=== PATIENT | female | born 1980 | race Caucasian/White ===

== ENCOUNTER 2016-12-01 08:17 | Emergency (ER) | payer OTHER ==
--- NOTE | ~2016-12-01 | CR63 ---
[facility] A Service of [facility] & [facility] / [facility] RADIOLOGY TEXT RESULTS PATIENT: BO KHAN LOCATION: [facility] : 84 UNIT #: [id number] AGE: [address]: Reer Houston SEX: F ORDER DR: [id number] [facility] [address] [place], [place] [address] [id number] E MR#: [id number] Acc #: [id number] NAME: BO KHAN : 1980 SEX: F STUDY DATE/TIME: 12/01/2016 8:23 UNIT: [facility] ROOM: STUDY DESCRIPTION: CR Chest 2 View Attending Physician: Rere Houston P.A.-C. Ordering Physician: Rere Houston P.A.-C. Primary Care Physician: No Primary Care Physician MEDICAL IMAGING REPORT This report is preliminary unless electronic signature is present EXAM Chest, 12/01/2016, 0823 hours, [facility]. HISTORY 36-year-old woman, productive cough, fever, congestion, short of air. 1-year smoking history. Current symptoms 8-9 days. COMPARISON Chest, 10/27/2012. FINDINGS PA and lateral chest views show normal cardiac size and configuration. Hilar structures and mediastinal contours are preserved. Bilateral lungs are expanded and clear. Costophrenic angles are clear. Bony thorax appears normal. IMPRESSION Negative chest. No acute finding. Dictated by... Manuel Ash M.D. THIS IS AN ELECTRONICALLY VERIFIED REPORT Manuel Ash M.D. at 12/01/2016 11:19 AM MUNDO/ramesh TD: 12/01/2016 09:15 JOB #: [id number] MEDICAL IMAGING REPORT Page 1 of 1 COPY
[2016-12-01 08:31] LABS: INFLUENZA A NEG (NEG); INFLUENZA B NEG (NEG)
== END 2016-12-01 09:00 | disposition home or self-care (01) ==
LOC: CED 08:17
PROVIDERS: Physician Assistant
DX: J06.9 Acute upper respiratory infection, unspecified (principal); H60.11 Cellulitis of right external ear; Z90.49 Acquired absence of other specified parts of digestive tract; Z88.0 Allergy status to penicillin
CPT/HCPCS: 71020; 84703; 87804; 94640; 99283